=== PATIENT | male | born 1995 | race Caucasian/White ===

== ENCOUNTER 2017-01-12 16:35 | Emergency (ER) | payer OTHER ==
[2017-01-12 17:52] LABS: Urine Bilirubin Negative (Negative); Urine Glucose Negative (Negative); Urine Nitrite Negative (Negative)
--- NOTE | 2017-01-12 18:24 | ED ---
GI/ HPI - HPI Summary HPI Summary: 21M presents with feeling light head and nauseous after biking in sun today without water or food. He has not eaten or drank anything since. He dneis any chest pain, SOB, tea colored urine, extreme muscle fatigue or fevers. He would like to try and eat something and see how he feels. He states that his heart rate has been elevated higher than normal today as is normal 55. - History of Current Complaint Chief Complaint: EDGeneral Time Seen by Provider: 01/12/17 17:40 Stated Complaint: HEAT EXHASTION Pain Intensity: 0 PMH/Surg Hx/FS Hx/Imm Hx Endocrine/Hematology History: Denies: Hx Anticoagulant Therapy Cardiovascular History: Denies: Hx Hypertension Infectious Disease History: No Infectious Disease History: Denies: Traveled Outside the [place] in Last 30 Days - Family History Known Family History: Negative: Cardiac Disease - Social History Alcohol Use: Occasionally Substance Use Type: Reports: None Smoking Status (MU): Never Smoked Tobacco Review of Systems Negative: Fever Negative: Chest Pain Negative: Shortness Of Breath Positive: Nausea Neurological: Other - lightheaded All Other Systems Reviewed And Are Negative: Yes Physical Exam Triage Information Reviewed: Yes Vital Signs On Initial Exam: Initial Vitals Temp Pulse Resp BP Pulse Ox 99.4 F 67 20 119/67 98 01/12/17 17:02 01/12/17 17:02 01/12/17 17:02 01/12/17 17:02 01/12/17 17:02 Vital Signs Reviewed: Yes Appearance: Positive: Well-Appearing Skin: Positive: Warm, Dry Head/Face: Positive: Normal Head/Face Inspection Eyes: Positive: Normal, EOMI, MARVIN, Conjunctiva Clear ENT: Positive: Normal ENT inspection, Pharynx normal, TMs normal Respiratory/Lung Sounds: Positive: Clear to Auscultation, Breath Sounds Present Cardiovascular: Positive: Normal, RRR Abdomen Description: Positive: Nontender, Soft Bowel Sounds: Positive: Present Diagnostics - Vital Signs Vital Signs Temp Pulse Resp BP Pulse Ox 01/12/17 17:29 98.1 F 75 16 114/59 99 01/12/17 17:02 99.4 F 67 20 119/67 98 - Laboratory Lab Results: Lab Results 01/12/17 Range/Units 17:41 Urine Color Yellow Urine Appearance Clear Urine pH 6.0 (5-9) Ur Specific [place] 1.014 (1.010-1.030) Urine Protein Negative (Negative) Urine Ketones 1+ H (Negative) Urine Blood Negative (Negative) Urine Nitrate Negative (Negative) Urine Bilirubin Negative (Negative) Urine Urobilinogen Negative (Negative) Ur Leukocyte Esterase Negative (Negative) Urine Glucose Negative (Negative) Lab Statement: Any lab studies that have been ordered have been reviewed, and results considered in the medical decision making process. GIGU Course/Dx - Course Course Of Treatment: 21M presents with feeling light head and nauseous after biking in sun today without water or food. He has not eaten or drank anything since. He dneis any chest pain, SOB, tea colored urine, extreme muscle fatigue or fevers. He would like to try and eat something and see how he feels. normal PE and vitals. normal urine. gave food and water and patient tolerated it and wants to go home. warned about potential signs of rhabdomyolsis. patient understands and agrees with plan. - Diagnoses Differential Diagnoses - Male: Dehydration, Other - rhabdomyolsis, heat exhaustion Provider Diagnoses: Dehydration Discharge - Discharge Plan Condition: Good Disposition: HOME Patient Education Materials: Dehydration (ED) Referrals: [facility] [Primary Care Provider] - Additional Instructions: Drink water and eat small snacks throughout day Return to ED if develop extreme muscle fatigue, tea colored urine, or any new or worsening symptoms
[2017-01-12 18:37] VITALS: BP 110/50
== END 2017-01-12 18:52 | disposition home or self-care (01) ==
LOC: ED 16:35
DX: E86.0 Dehydration (principal)
CPT/HCPCS: 36415; 81003; 86703; 99282